=== PATIENT | female | born 2000 | race Caucasian/White ===

== ENCOUNTER 2020-10-09 05:38 | Inpatient (IN) | payer OTHER ==
[~2020-10-09] VITALS: Ht 149.9 cm; Wt 96.2 kg
[~2020-10-09 05:38] MED LIST: CEFUROXIME500 MG PO; COLACE 100MG C100 MG PO; GUMMIES CHILDR1 EACH PO; IBUPROFEN600 MG PO; LORTAB 5-325 M1 EACH PO; NAPROSYN500 MG PO; NORCO 7.5-3251 EACH PO; ONDANSETRON ODT4 MG PO
[2020-10-09] MEDS ORDERED: PRENATAL TABLE1 EAC1 PO (06:09)
[2020-10-09 06:42] LABS: RED BLOOD COUNT 3.64 M/UL (4.00-5.10); WHITE BLOOD COUNT 8.2 K/UL (4.5-11.0)
[2020-10-09] MEDS ORDERED: DOCUSATE SODIU100 MG PO (14:17)
[2020-10-09] MEDS ORDERED: IBUPROFEN600 MG PO (14:17)
[2020-10-10 06:09] LABS: HEMOGLOBIN 9.5 gm/dl (12.3-15.3)
== END 2020-10-10 18:15 | disposition home or self-care (01) | DRG 807 ==
LOC: OB 05:38
PROVIDERS: Obstetrics & Gynecology; ADMIT Obstetrics & Gynecology
PROC: 10E0XZZ Delivery of Products of Conception, External Approach (ICD-10-PCS; principal; 2020-10-09)
PROC: 10907ZC Drainage of Amniotic Fluid, Therapeutic from Products of Conception, Via Natural or Artificial Opening (ICD-10-PCS; 2020-10-09)
PROC: 3E033VJ Introduction of Other Hormone into Peripheral Vein, Percutaneous Approach (ICD-10-PCS; 2020-10-09)
PROC: 0HQ9XZZ Repair Perineum Skin, External Approach (ICD-10-PCS; 2020-10-09)
PROC: 3E02340 Introduction of Influenza Vaccine into Muscle, Percutaneous Approach (ICD-10-PCS; 2020-10-10)
PROC: 3E0234Z Introduction of Serum, Toxoid and Vaccine into Muscle, Percutaneous Approach (ICD-10-PCS; 2020-10-10)
DX: O36.63X0 Maternal care for excessive fetal growth, third trimester, not applicable or unspecified (principal); Z37.0 Single live birth; Z3A.39 39 weeks gestation of pregnancy; O70.0 First degree perineal laceration during delivery; Z23 Encounter for immunization
CPT/HCPCS: 36415; 51702; 82800; 85014; 85018; 85025; 90686; 90715; G0008; J2590; J3010; J7120

== ENCOUNTER 2021-05-20 07:53 | Emergency (ER) | payer OTHER ==
[~2021-05-20 07:53] MED LIST changes: +DOCUSATE SODIU100 MG PO; +PRENATAL TABLE1 EAC1 PO
[2021-05-20 08:41] LABS: HEMOGLOBIN 15.1 gm/dl (12.3-15.3); RED BLOOD COUNT 5.18 M/UL (4.00-5.10); WHITE BLOOD COUNT 5.6 K/UL (4.5-11.0)
[2021-05-20 09:04] LABS: BUN/CREATININE RATIO 24 (0-10)
[2021-05-20] MEDS ORDERED: ZOFRAN ODT 4 MG4 MG SL (11:24)
== END 2021-05-20 11:39 | disposition home or self-care (01) ==
LOC: ER1 07:53
PROVIDERS: Student in an Organized Health Care Education/Training Program
DX: N20.0 Calculus of kidney (principal); F17.200 Nicotine dependence, unspecified, uncomplicated
CPT/HCPCS: 80053; 81001; 84703; 85025; J1885; Q9967

== ENCOUNTER 2021-05-20 21:05 | Emergency (ER) | payer OTHER ==
[~2021-05-20 21:05] MED LIST changes: +ZOFRAN ODT 4 MG4 MG SL
[2021-05-20 22:22] LABS: HEMOGLOBIN 14.6 gm/dl (12.3-15.3)
[2021-05-20 22:24] LABS: WHITE BLOOD COUNT 9.6 K/UL (4.5-11.0)
[2021-05-20 22:58] LABS: BUN/CREATININE RATIO 21 (0-10)
== END 2021-05-21 01:25 | disposition home or self-care (01) ==
LOC: ER1 21:05
PROVIDERS: Physician Assistant
DX: R10.32 Left lower quadrant pain (principal); R30.0 Dysuria; F17.210 Nicotine dependence, cigarettes, uncomplicated
CPT/HCPCS: 80053; 81001; 83690; 84703; 85025; 96374; 99284; J1885; Q9967

== ENCOUNTER → 2021-07-09 | Outpatient (CLI) | payer OTHER | LOC: EXRD 14:15 | DX: N39.0 Urinary tract infection, site not specified (principal); R31.9 Hematuria, unspecified; N20.0 Calculus of kidney | CPT/HCPCS: 76775 ==